=== PATIENT | female | born 1995 | race Caucasian/White ===

== ENCOUNTER → 2017-12-15 15:52 | Outpatient (CLI) | payer SELFPAY ==
--- NOTE | 2017-12-15 15:58 | CT_ITS ---
STUDY: CT ORBITS WITHOUT CONTRAST REASON FOR EXAM: Female, 22 years old. Orbital trauma, struck eye on handle, swelling and bruising and pain. RADIATION DOSAGE (If Supplied By Facility): CTDIvol = ( 29.38 ) mGy, DLP = ( 429.92 ) mGycm TECHNIQUE: The patient was scanned in a multi detector CT scanner. Transaxial imaging was performed without the administration of intravenous contrast material. Sagittal and coronal images were reconstructed. Individualized dose optimization techniques were used for this CT. COMPARISON: None. FINDINGS: Right orbit: There is gas within the extraconal inferior portion of the right orbit. There is no intraconal gas. There is no definitive depressed lamina papyracea or orbital floor fracture, however I suspect there is a tiny communication with the sinus along the inferior medial margin of the orbital wall near the course of the lacrimal duct. Orbital rim intact. Lateral and superior orbital beaver intact. Normal appearance of the globe and lens. The remaining facial soft tissues are unremarkable. The remaining osseous structures are intact. The paranasal sinuses are normally developed and clear with the exception of mild mucoperiosteal thickening along the apex of the right maxillary sinus possibly associated with the patient's injury. CT/Orb Sella Post Fossa Ear w/o IMPRESSION: Extraconal intraorbital gas on the right, along the inferior margin of the globe, expected source from the adjacent sinuses but the precise location of the expected fracture is not clearly discernible. Electronically Signed: Octavio Sanchez, at 16:45 EDT Tel , Service support ,
== END ==
PROVIDERS: Visit Provider Ophthalmology
DX: S05.91XA Unspecified injury of right eye and orbit, initial encounter (principal)
CPT/HCPCS: 70480

== ENCOUNTER → 2018-08-18 13:29 | Outpatient (CLI) | payer SELFPAY ==
[2018-08-18 14:23] LABS: Hemoglobin 13.6 g/dl (12.0-15.0); Mean Corpuscular Hgb 29.2 pg (27.0-32.0); Mean Platelet Vol. 9.4 fl (6.2-12.0); Platelet Count 291 K/mm3 (150-450); RBC Distribution Width CV 12.2 % (11.6-14.6); RBC Distribution Width SD 38.3 fl (35.1-43.9); Red Blood Count 4.65 M/mm3 (4.2-5.4); Scan Indicated on CBC? Y/N NO; White Blood Count 5.4 K/mm3 (4.4-11.0)
[2018-08-18 14:50] LABS: AST(SGOT) 13 U/L (15-37); Alanine Aminotransfer ALT/SGPT 18 U/L (13-56); Albumin, Serum 4.3 g/dL (3.2-5.0); Alkaline Phosphatase 71 U/L (45-117); Bilirubin, Direct 0.11 mg/dL (0.00-0.30); Estradiol 14.6 pg/mL; Follicle Stimulating Hormone 6.2 mIU/mL; Free T3 3.1 pg/mL (2.18-3.98); Globulin 3.4 g/dL (2.2-4.2); Progesterone Level 0.78 ng/mL (See Comment); Protein, Total 7.7 g/dL (6.4-8.2); T4 Free Direct 0.98 ng/dL (0.76-1.46); Thyroid Stim Hormone (TSH) 0.64 uIU/mL (0.358-3.74); Vitamin D,25 Hydroxy 26.8 ng/mL (29.95-100.01)
[2018-08-19 04:09] LABS: DHEA Sulfate 456.1 ug/dL (110.0-431.7)
[2018-08-19 11:47] LABS: Sex Hormone-binding Globulin 29.9 nmol/L (24.6-122.0)
[2018-08-21 11:01] LABS: 17-Hydroxyprogesterone 28 ng/dL (.)
== END ==
PROVIDERS: Visit Provider Obstetrics & Gynecology
DX: E28.9 Ovarian dysfunction, unspecified (principal); I10 Essential (primary) hypertension
CPT/HCPCS: 36415; 80076; 82306; 82533; 82627; 82670; 83001; 83498; 84144; 84146; 84270; 84403; 84439; 84443; 84481; 85027; 82626

== ENCOUNTER → 2019-06-16 15:20 | Outpatient (CLI) | payer SELFPAY ==
[2019-06-16 19:13] LABS: Chlamydia Trachomatis by PCR Negative (Negative); Neisserai gonorrhoeae by PCR Negative (Negative); Probe Check PASS; Sample Adequacy Control PASS; Specimen Processing Control PASS
== END ==
PROVIDERS: Visit Provider Obstetrics & Gynecology
DX: Z11.3 Encounter for screening for infections with a predominantly sexual mode of transmission (principal)
CPT/HCPCS: 87491; 87591

== ENCOUNTER 2020-03-09 07:29 | Day surgery (SDC) | payer SELFPAY ==
[2020-03-02 14:57] LABS: Hematocrit 37.3 % (37-47); Hemoglobin 12.8 g/dL (12.0-15.0); Mean Corp Hgb Conc 34.3 g/dL (32-36); Mean Corpuscular Hgb 30.4 pg (27.0-32.0); Mean Corpuscular Volume 88.6 fL (81-99); Mean Platelet Vol. 9.1 fl (6.2-12.0); Platelet Count 278 K/mm3 (150-450); RBC Distribution Width CV 11.9 % (11.6-14.6); RBC Distribution Width SD 37.9 fl (35.1-43.9); Red Blood Count 4.21 M/mm3 (4.2-5.4); White Blood Count 5.7 K/mm3 (4.4-11.0)
--- NOTE | 2020-03-08 18:34 | HP.PCM_ITS ---
History and Physical Surgical History and Physical Name: CARRIE CHUNG Age: 25 Date of : 1995 Carrie Chung, a 25 year old female 0 0 0 0 0, presents for Diagnostic Laparoscopy, ovarian cystectomy, possible oophorectomy on March 09, 2020 at 10:00. 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 is with pt today for visit. Pt was referred from [facility]. She had miscarriage in late June 2019 and has had pain on and off. US and CT done at [facility]. LMP 01/30/20. Menses monthly and regular. Carrie is planned Laproscopic cystectomy with possible oopherectomy for suspected dermoid cyst. PAT packet provided and consents are signed. pelvic pain which began July 2019. Carrie claims it started after miscarriage and has been present months. It occurs day.; It occurs night. It is located in the LLQ of the abdomen.; It is located in the RLQ of the abdomen. Carrie characterizes it to be to the back. Carrie characterizes the quality cramping.; Carrie characterizes the quality throbbing.; Carrie characterizes the quality pulling.; Carrie characterizes the quality painful. Severity is moderate and worsening MEDICATIONS HISTORY: Current medications prescribed by our practice are: 1. meloxicam 7.5 mg tablet, 1 PO QD ALLERGIES: NKDA Infections - Chicken pox Illnesses - none Accidents - None Hospitalizations - None last pap 2016; Review of Systems: GENERAL - Denies fever, or chills SKIN - Denies skin changes EYES - Denies visual changes EARS - Denies difficulty hearing NOSE - Denies nasal congestion or bleeding MOUTH - Denies sore throat or difficulty swallowing NECK - Denies pain or swelling RESPIRATORY - Denies shortness of breath or wheezing CARDIOVASCULAR - Denies palpitations or chest pain GASTROINTESTINAL - Denies nausea, vomiting, diarrhea, constipation GENITOURINARY - Denies dysuria, frequency of urination, incontinence of urine MUSCULOSKELETAL - Denies joint or muscle pain NEUROLOGICAL - Denies localized numbness or weakness PSYCHIATRIC - Denies depression or anxiety ENDOCRINE - Denies heat or cold intolerance, weight loss or gain HEMATO-IMMUNOLOGIC - Denies excessive bleeding with cuts SOCIAL HISTORY: Alcohol Use - drinks occasionally Smoking - Never Diet - no special diet Lifestyle - Exercise - active Seat Belt Use - always 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 MENSTRUAL HISTORY: LMP: Amount/Duration - 5-6 days, Regularity - Regular, Frequency - monthly days, LMP - 02/24/20, Age Onset Menarche - 11 PAST PREGNANCIES: Total Pregnancies - 0; Full Term Pregnancies - 0; Premature - 0; Abortions, Induced - 0; Abortions, Spontaneous - 0; Ectopics - 0; Multiple Births - 0; Living Children - 0 SURGICAL HISTORY: 1. [place] Teeth Removal ; - PHYSICAL EXAM BP- 120/82 Sitting, Right arm, regular cuff Temp- 98.4 Taken Orally Weight- 129.57138 lbs Height- 63 inch BMI:22.90 CONSTITUTIONAL - NAD, well nourished, and well developed SKIN - No rash, lesions, or ulcers HEENT - Normocephalic, PERRLA, EOMI NECK - No nodes, no nuchal rigidity and thyroid normal size and texture LYMPH NODES - Palpation of lymph nodes in neck and groins within normal limits ABDOMEN - Without hepatosplenomegaly, distention, masses, rebound, or guarding; normal bowel sounds; no hernias EXTREMITIES - No edema or calf tenderness NEUROLOGICAL - Cranial nerves II-XII grossly intact PSYCHIATRIC - A and O to time, place, person, mood and affect External Genital Vagina - non-tender without lesions Urethra/Urethral Meatus - non-tender Bladder - non-tender Vagina - vaginal beaver are pink and moist without loss of rugae and no evidence of atrophy Cervix - without cervical motion tenderness and has normal size and features without evident lesions Uterus - 5-6 cm in size, mobile and nontender Adnexa - Mildly tender to palpation of RLQ. clear without masses ASSESSMENT/PLAN: 1. Benign Neoplasm Of Unspecified Ovary CT and U/s show suspicion for Dermoid appearing right ovarian cyst. 2.8x.2.2x2.7cm Pt with intermittent discomfort that is mild. No sudden excruciating pain, n/v. No signs of torsion R/b/a discussed including risk for malignancy and risk for torsion. Pt elects for surgery For Diagnostic laparoscopy, ovarian cystectomy, possible oophorectomy 2. Encounter For Other Preprocedural Examination For Diagnostic laparoscopy, ovarian cystectomy, possible oophorectomy for dermoid cyst Pt understands risk of procedure include but are not limited to visceral or vascular injury, blood loss and need for transfusion, reoperation. No medical changes. Pt understands risks of oophorectomy including fertility and early menopause, pt is agreeable to oophorectomy if needed Pt understands risk of malignancy Follow up post operatively
[2020-03-09 07:52] VITALS: BP 131/86; PULSE 73; RESP 16; TEMP 36.9; O2SAT 100; BMI 22.9
[2020-03-09] MEDS: Lactated Ringers 1,000 ML 100 ML IV ×2 (07:58→09:47)
[2020-03-09 08:50] LABS: Internal QC Validated? YES +Cl - CLEAR BKGD; Pregnancy, Urine Negative Negative
--- NOTE | 2020-03-09 08:55 | OV_PTH ---
PATIENT: DIMITRIS [place]G [place] [facility] [place][id number] AGE/SX: 25/F ROOM: RE03/09/[address]: Dr. Miguel Angel Brown MD : 1995 BED: DIS: 03/09/2020 SPEC #: [id number] RECD: 03/09/20 10:37 STATUS: SHERINE CINDA #: [id number] JONNA: 03/09/20 08:[address]: Miguel Angel Brown DEPT: SURGICAL PATHOLOGY RECD BY: Tricia Hardy ENTERED: 03/09/20 10:43 SP TYPE: OVARY OTHR DR: FREDRICK Rose Tissues: Right ovary Procedures: Surgery Specimen Level V HEADER OPERATION: Diagnostic laparoscopy, lap ovarian cystectomy, oophorectomy PRE-OP DIAGNOSIS: Benign neoplasm of ovary TISSUE SUBMITTED: Right ovary, cyst MICROSCOPIC DIAGNOSIS Right ovary, cyst, oophorectomy: Mature cystic teratoma, dermoid cyst (3 cm in greatest dimension). Physiologic follicular and corpus luteal cysts. ANN:mihir 03/10/20 MICROSCOPIC DESCRIPTION Slides are reviewed. GROSS DESCRIPTION Received in fixative is one container labeled with the patient's name and designated right ovary, cyst. The specimen consists of a soft to cystic ovary weighing 12.5 gm and measuring 4 x 3 x 2 cm. A focal area of disruption is noted showing sebaceous material. No papillation is identified. The outer surface is inked black. The resection margin is inked blue and reveal a cyst filled with sebaceous material and hair measuring 3 cm in greatest dimension. Sections of the uninvolved ovary show multiple cysts filled with clear fluid measuring 0.2 to 0.3 cm in greatest dimension. The entire specimen is submitted in five cassettes. / ANN:mihir 03/09/20 TC:1 CPT: 77613
--- NOTE | 2020-03-09 09:59 | PCM.OPRPT ---
Report of Operation Date of Procedure: 03/09/20 Pre-Operative Diagnosis: Right ovarian cyst, pelvic pain Post-Operative Diagnosis: Right ovarian cyst, pelvic pain Surgery/Procedure Performed:: Diagnostic laparoscopy right oophorectomy Description of Surgical Findings:: Surgeon: Dr. Miguel Angel Brown EBL: Minimal IV fluids: 1200 cc Urine output: 250 cc Complications: None Anesthesia: General Pathology: Right ovary Findings: Right ovary with complex cystic structure noted to be involving the entire ovary. Posterior cul-de-sac with signs of endometriosis. Posterior left portion of uterus with 2 cm subserosal fibroid. Consent: Patient went to ER with pelvic pain found on CT and ultrasound to have a 2 to 3 cm complex cyst with suspicion for dermoid in need of diagnostic laparoscopy possible oophorectomy. Patient understands risk procedure include but not limited to visceral or vascular risk injury, prolonged hospitalization, blood loss need for transfusion, reoperation. Patient understanding was proceed. All questions consent was signed. Procedure: Patient was brought back to the OR where general anesthesia found be adequate. Patient appeared draped in dorsolithotomy position with yellowfin stirrups. A weighted speculum is placed in the posterior aspect of the vagina cervical as he is dilated cervix. Uterine manipulator was placed. Veress needle was used at the umbilicus with water safety test past abdomen was insufflated trocar was placed at umbilicus. Bilateral lower quadrant trochars were placed under direct visualization. Upon inspection noted to have right cyst small amount of fluid in the posterior cul-de-sac along with other above findings. In need of right oophorectomy. Using a LigaSure device and atraumatic grasper IP ligament and ureter were identified. IP ligament was cut and cauterized with LigaSure device utero-ovarian ligament was cut and cauterized mesosalpinx cut and cauterized Endo Catch bag was inserted and right ovary was removed and sent to pathology. Good hemostasis noted posterior cul-de-sac fluid was removed. Abdomen was deflated trochars removed under direct visualization. The manipulator was removed. Trocar sites were closed with subcutaneous suture and fascia was closed with suture. All counts correct x2. Patient tolerated procedure well and brought to recovery in stable condition. bank note designer: Cesar Leyva
--- NOTE | 2020-03-09 10:06 | PCM.DC ---
You will use the following diet at home:: No restrictions Discharge Activity: Return to Normal Activity May resume sexual activity in: 2 weeks Lifting Restrictions: No lifting over 25 pounds for 3 weeks Call your doctor if your incision/area has: Foul Smelling Discharge Call your doctor if you observe: Fever of 101 or Higher, Shortness of breath, Dizziness, Chest pain Allergies/Adverse Reactions: Allergies No Known Allergies Allergy (Verified 02/28/20 13:03) Medications to take at Discharge Meloxicam [Mobic] 7.5 mg PO PRN PRN 02/28/20 Oxycodone [Oxyir] 5 mg PO Q6H PRN PRN 2 Days #6 tab 03/09/20 The following prescriptions were given: Oxycodone [Oxyir] 5 mg PO Q6H PRN PRN 2 Days #6 tab PRN Reason: Pain Score 6-10/10 Transmission Status: Received by [facility] Primary Care Physician: Martine Layton PA [Primary Care Provider] - Test Results: Test results from this visit will be discussed in further detail at your follow-up appointment, if applicable. Please Follow Up With: Miguel Angel Brown MD When: 2 to 4 weeks Proposed Discharge Date: 03/09/20
[2020-03-09 10:14] VITALS: BP 119/90; BP 131/86; PULSE 74; RESP 14; TEMP 36.6; O2SAT 99
[2020-03-09 10:30] VITALS: BP 123/91; BP 131/86; PULSE 67; RESP 16; O2SAT 99
[2020-03-09 10:47] VITALS: BP 128/78; BP 131/86; PULSE 64; RESP 14; TEMP 37.2; O2SAT 100
[2020-03-09] MEDS: oxyCODONE 5 MG Tablet PO (11:12)
[2020-03-09 11:42] VITALS: BP 117/74; BP 131/86; PULSE 64; RESP 16; TEMP 36.5; O2SAT 100
[2020-03-09 12:00] VITALS: BP 131/86
== END 2020-03-09 12:04 | disposition home or self-care (01) ==
LOC: SDC 07:32 → AC 07:33
PROVIDERS: Anesthesiology; PCP Physician Assistant; Referring Provider Obstetrics & Gynecology; Visit Provider Obstetrics & Gynecology
PROC: (CPT 49320; principal; 2020-03-09 08:40)
DX: D27.0 Benign neoplasm of right ovary (principal); D25.2 Subserosal leiomyoma of uterus; N83.01 Follicular cyst of right ovary; N83.11 Corpus luteum cyst of right ovary; Z11.59 Encounter for screening for other viral diseases
CPT/HCPCS: 00840; 58661; 81025; 85027; 86850; 86900; 86901; 87635; 88305; 88307; C9803; J7120; J2405; U0003